=== PATIENT | male | born 1955 | race Caucasian/White ===

== ENCOUNTER → 2019-06-14 10:34 | Outpatient (CLI) | payer OTHER, SELFPAY ==
--- NOTE | ~2019-06-14 | XR_ITS ---
EXAMINATION: XR shoulder RT min 2V DATE: 06/14/2019 11:06 INDICATION: Right shoulder injury with palpable pop and subsequent anterior right shoulder pain and l imited range of motion TECHNIQUE: AP internally and externally rotated, AP oblique externally rotated and axillary views of the right shoulder were obtained. COMPARISON: None FINDINGS: Normal alignment. No fracture.Mild glenohumeral osteoarthritis with mild posterior predominant nonun iform joint space narrowing and small marginal osteophytes along the inferior humeral head. Mild acro mioclavicular osteoarthritis. Small subacromial spur. Right lung volume appears small but clear with no focal airspace opacities, pleural effusion or pneumothorax. IMPRESSION: Mild degenerative changes at the right shoulder. No acute osseous abnormality. Reviewed, dictated and finalized at location A.
== END ==
PROVIDERS: PCP Family Medicine; Visit Provider Family Medicine
DX: S49.91XA Unspecified injury of right shoulder and upper arm, initial encounter (principal)
CPT/HCPCS: 73030

== ENCOUNTER 2019-08-07 08:14 | Outpatient (CLI) | payer OTHER, SELFPAY ==
--- NOTE | ~2019-08-07 | MR_ITS ---
EXAMINATION: MR shoulder RT wo con DATE: 08/07/2019 09:10 INDICATION: Anterior superior right shoulder pain. TECHNIQUE: Magnetic resonance imaging (MRI) of the right shoulder was performed without intravenous c ontrast. Sequences included axial PD-weighted FS FSE, coronal oblique PD-weighted FS FSE and T2-weigh oziel FS FSE, and sagittal oblique T2-weighted FS FSE and T1-weighted FSE. COMPARISON: Right shoulder radiographs 06/14/2019 FINDINGS: Coracoacromial arch: The acromion undersurface is flat in morphology (type I). Subacromial spurring is noted. There is sev ere acromioclavicular joint osteoarthritis including inferiorly directed osteophytes. There is mild s ubacromial/subdeltoid bursitis. Rotator cuff: There is severe supraspinatus and infraspinatus tendinopathy. There is an articular sided partial-thi ckness tear of supraspinatus and infraspinatus tendons measuring 2.8 cm anterior to posterior by 3.9 cm proximal to distal by 30% tendon thickness. Teres minor tendon is normal. There is mild subscapula ris tendinopathy. There is no asymmetric fatty atrophy of the rotator cuff muscle bellies. Biceps tendon and glenoid labrum: Biceps tendon is in bicipital groove. There is mild intra-articular biceps tendinopathy. There is a t ear of superior and posterior labrum from 7:00 to 12:00 (SLAP tear) with 5 mm paralabral cyst at 8:00 . Fluid: There is a small glenohumeral joint effusion. Bones/cartilage: There is cartilage surface irregularity of glenoid and humeral head. Osteophytes are noted. IMPRESSION: 1. Severe rotator cuff tendinopathy with articular-sided partial-thickness tear involving supraspinat us and infraspinatus tendons. 2. Mild glenohumeral joint chondrosis. SLAP tear. 3. Small glenohumeral joint effusion. 4. Severe acromioclavicular joint osteoarthritis. 5. Mild subacromial/subdeltoid bursitis. Reviewed, dictated and finalized at location E. IMPRESSION: 1. Severe rotator cuff tendinopathy with articular-sided partial-thickness tear involving supraspinatus and infraspinatus tendons. 2. Mild glenohumeral joint chondrosis. SLAP tear. 3. Small glenohumeral joint effusion. 4. Severe acromioclavicular joint osteoarthritis. 5. Mild subacromial/subdeltoid bursitis.
== END 2019-08-07 08:15 | disposition home or self-care (01) ==
LOC: ANHIMG 08:24
PROVIDERS: PCP Family Medicine; Visit Provider Family Medicine
DX: S46.011A Strain of muscle(s) and tendon(s) of the rotator cuff of right shoulder, initial encounter (principal); S43.431A Superior glenoid labrum lesion of right shoulder, initial encounter; M25.411 Effusion, right shoulder; M19.011 Primary osteoarthritis, right shoulder; M75.51 Bursitis of right shoulder
CPT/HCPCS: 73221

== ENCOUNTER → 2019-11-29 08:15 | Outpatient (REF) | payer BC, SELFPAY | LOC: ANHLAB 08:15 | PROVIDERS: PCP Family Medicine; Visit Provider Nurse Practitioner | DX: C44.311 Basal cell carcinoma of skin of nose (principal) | CPT/HCPCS: 88305 ==

== ENCOUNTER → 2020-01-23 06:57 | Outpatient (REF) | payer BC, SELFPAY | LOC: ANHLAB 06:57 | PROVIDERS: PCP Family Medicine; Visit Provider Nurse Practitioner | DX: C44.311 Basal cell carcinoma of skin of nose (principal) | CPT/HCPCS: 88305; 88331 ==

== ENCOUNTER 2020-02-10 01:23 | Outpatient (CLI) | payer BC, SELFPAY ==
[2020-02-10 21:24] LABS: SARS-CoV-2 RNA PCR Negative
== END 2020-02-10 01:24 | disposition home or self-care (01) ==
LOC: ANHCOVIDDT 01:23
PROVIDERS: PCP Family Medicine; Visit Provider Internal Medicine Critical Care Medicine
DX: Z20.828 Contact with and (suspected) exposure to other viral communicable diseases (principal)
CPT/HCPCS: 87635; C9803; U0003

== ENCOUNTER 2020-02-13 07:43 | Outpatient (CLI) | payer BC, SELFPAY ==
--- NOTE | 2020-03-19 11:36 | WPDSLEEPSTUD ---
Sleep Study Date of Study: 02/13/20 Ordering Provider: Chad Soler DO Interpreting Physician: Adele Lee MD Sleep Study Type: Polysomnogram Height: 1.83 m Weight: 101.151 kg Body Mass Index: 30.2 Neck Circumference: 44.45 cm [place]: 9 Reason for Sleep Study history of obstructive sleep apnea; re-evaluation prior home sleep study on October 01, 2017 for loud snoring; mild obstructive sleep apnea with mild desaturation and snoring, AHI 8.7, lowest desaturaiton 87% Sleep History Craig Kenney is a 64 year old man who was referred by Dr Soler for loud snoring , 5 and a that others complain about it. He rarely awakens at night with heartburn, belching or coughing. He does not awaken from sleep feeling short of breath. He rarely has trouble sleep with a cold. He is gasp for breath at night and is not told by others that he has breathing problems while sleeping. He occasionally sweats excessively at night and occasionally notices his heart pounding or beating irregularly at night. He rarely falls asleep during the day, rarely involuntarily. He occasionally falls asleep while driving. He does not fall asleep while exerting physical effort. He does not have loss of muscle tone was strong emotion. He does not have daytime difficulties due to excessive sleepiness. He does not feel paralyzed on waking or falling asleep. He does not have vivid dreamlike scenes upon awakening or falling asleep. He is not afraid to go to sleep. He denies nightmares. He rarely remembers his dreams. He occasionally has racing thoughts he does not feel sad or depressed. Occasionally has feelings of anxiety. he rarely has muscular tension. He occasionally notices parts of his body jerking. He does not kick at night. He rarely has crawling and aching feelings in his legs at night. he rarely has leg pain at night. He does not have morning jaw pain. He frequently grinds his teeth during sleep. He occasionally has bothered by pain during the day. He rarely is awakened by pain at night. He occasionally wakes up feeling stiff in the morning. He rarely wakes up with sore or achy muscles. He occasionally wakes up with pain in the neck and spine. He has headaches. Normal bedtime is 9:00 p.m. falling asleep quickly waking twice at night for 10-20 minutes. While awake he goes to the bathroom. He wakes the morning at 5:00 a.m.. Weekend schedule is similar, going ot bed at 9:00 p.m. waking at 6:00 a.m. He does not usually take a nap. Short naps are not refreshing. He feels better inthe morning compared ot other times of fay. Habits: never smoked tobacco. Caffeine 2-3 glasses per day. Alcohol 4 beers per month. No recreational drugs. [facility] Past Medical History Medical History (Updated 03/19/20 @ 19:28 by Adele Lee MD) Essential (primary) hypertension Gout, unspecified Hypothyroidism Mixed hyperlipidemia MAYKEL (obstructive sleep apnea) (~2018) Family History Family History Father Family history of lung cancer Social History Social History Smoking status: Never smoker Alcohol intake: never Additional living arrangements comments: - [place] Additional occupation/education comments: [employer] ([employer]) Gender identity (if verbalized by the patient): Male Medications Home Medications Medication Instructions Recorded Confirmed Type levothyroxine 50 mcg tablet 50 mcg PO DAILY #90 tablet 07/03/19 02/24/20 Rx allopurinol 300 mg tablet 300 mg PO DAILY #90 tablet 10/04/19 02/24/20 Rx rosuvastatin 20 mg tablet See Rx Instructions .ROUTE 01/02/20 02/24/20 Rx .COMPLEX #90 tablet amoxicillin 875 mg-potassium 1 tablet PO BID #20 tablet 02/22/20 02/24/20 Rx clavulanate 125 mg tablet Sleep Procedure This test was performed using the [employer] multiple channel system including EOG, EEG, submental EMG, EKG,
[2020-03-19 17:18] VITALS: BMI 30.2
== END 2020-02-13 07:44 | disposition home or self-care (01) ==
LOC: ANHCSM 07:43
PROVIDERS: PCP Family Medicine; Visit Provider Internal Medicine Cardiovascular Disease
DX: G47.33 Obstructive sleep apnea (adult) (pediatric) (principal)
CPT/HCPCS: 95810

== ENCOUNTER → 2020-07-10 00:26 | Outpatient (CLI) | payer BC, SELFPAY ==
[2020-07-10 20:47] LABS: SARS-CoV-2 RNA PCR Negative
== END ==
PROVIDERS: PCP Family Medicine; Visit Provider Internal Medicine Gastroenterology
DX: Z01.812 Encounter for preprocedural laboratory examination (principal); Z20.822 Contact with and (suspected) exposure to COVID-19
CPT/HCPCS: C9803; U0003; U0005

== ENCOUNTER 2020-07-13 01:32 | Day surgery (SDC) | payer BC, SELFPAY ==
[2020-07-02 14:30] VITALS: BMI 31.4
[2020-07-13 08:12] VITALS: BP 142/96; PULSE 76; RESP 20; TEMP 36; O2SAT 99
[2020-07-13] MEDS: LACTATED RINGERS 1,000 ML 150 ML IV CONT (08:17)
--- NOTE | 2020-07-13 09:01 | PM.HPGS ---
History of Present Illness History of Present Illness Consent: Risks, benefits, and alternatives have been discussed and questions answered. Patient agrees to proceed with procedure. Chief complaint: hx of colon polyps, neoplasm screening Narrative: Craig Kenney is a 64 year old male referred for colon cancer screening. He has a history of having had polyps in past Review of Systems Review of Systems: All systems reviewed & are unremarkable except as noted in HPI and below PMFSH Past Medical History Medical History Essential (primary) hypertension Gout, unspecified Hypothyroidism Mixed hyperlipidemia MAYKEL (obstructive sleep apnea) (~2018) Screen for colon cancer Family History Family History Father Family history of lung cancer Social History Social History Smoking status: Never smoker Alcohol intake: never Substance use: never Substance use type: does not use Living arrangements: with family Additional living arrangements comments: - [place] Additional occupation/education comments: [employer] ([employer]) Gender identity (if verbalized by the patient): Male Spiritual care concerns: No Meds Home Medications and Allergies Home Medications Medication Instructions Recorded Confirmed Type sildenafil 100 mg tablet 100 mg PO DAILY PRN #20 tablet 06/08/20 07/13/20 Rx allopurinol 300 mg tablet 300 mg PO DAILY #90 tablet 07/02/20 07/13/20 Rx levothyroxine 50 mcg tablet 50 mcg PO DAILY #90 tablet 07/02/20 07/13/20 Rx rosuvastatin 20 mg PO DAILY 07/13/20 07/13/20 History Allergies Allergy/AdvReac Type Severity Reaction Status Date / Time No Known Allergies Allergy Verified 07/13/20 08:11 Vital Signs Vital Signs - 24 hr 07/13/20 08:12 Temperature 36.0 C L Pulse Rate 76 Respiratory Rate 20 Blood Pressure 142/96 H Pulse Oximetry 99 Exam Resp: Auscultation: clear to auscultation bilaterally Cardio: Rate: regular rate Rhythm: regular rhythm GI: GI Palp: Yes Soft to palpation and No Tenderness to palpation present (GI) Assessment and Plan Assessment and plan (1) Screen for colon cancer: Code(s): Z12.11 - Encounter for screening for malignant neoplasm of colon Status: Acute Assessment and Plan: Colonoscopy with possible biopsy or polypectomy or cautery or injection of substances.
[2020-07-13 09:29] VITALS: BP 106/67; PULSE 69; RESP 15; O2SAT 95
[2020-07-13 09:39] VITALS: BP 117/77; PULSE 72; RESP 19; O2SAT 95
[2020-07-13 09:49] VITALS: BP 115/83; PULSE 70; RESP 19; O2SAT 98
== END 2020-07-13 10:00 | disposition home or self-care (01) ==
PROVIDERS: PCP Family Medicine; Visit Provider Internal Medicine Gastroenterology
PROC: 0DJD8ZZ Inspection of Lower Intestinal Tract, Via Natural or Artificial Opening Endoscopic (ICD-10-PCS; CPT 45378; principal; 2020-07-13 09:30)
DX: Z12.11 Encounter for screening for malignant neoplasm of colon (principal); Z86.010 Personal history of colon polyps; K57.30 Diverticulosis of large intestine without perforation or abscess without bleeding; I10 Essential (primary) hypertension; G47.33 Obstructive sleep apnea (adult) (pediatric); E78.2 Mixed hyperlipidemia; E03.9 Hypothyroidism, unspecified
CPT/HCPCS: 45378; J2704; J7120

== ENCOUNTER → 2020-11-29 14:40 | Outpatient (CLI) | payer BC, SELFPAY ==
--- NOTE | ~2020-11-29 | XR_ITS ---
XR hip BI 2V w AP pelvis DATE: 11/29/2020 15:24 INDICATION: Hip pain TECHNIQUE: AP pelvis. AP and lateral views of each hip. COMPARISON: None FINDINGS: The pubic symphysis and sacroiliac joints are intact. No pelvic fracture or bone destruction is detected. No fracture or dislocation, avascular necrosis or bone destruction of either hip is detected. Hip beata nt spaces are symmetric and well preserved. IMPRESSION: No significant abnormality of the hips Reviewed, dictated and finalized at location A.
--- NOTE | ~2020-11-29 | XR_ITS ---
XR lumbar spine 6V w bending DATE: 11/29/2020 15:24 INDICATION: Hip pain TECHNIQUE: AP, lateral, bilateral oblique and coned lateral lumbosacral views. Flexion and extension lateral views. COMPARISON: None FINDINGS: There is prominent degenerative spurring of the lower thoracic spine. There is moderate degenerative disc disease and anterior spurring at L1-2. There is moderately severe degenerative disease and spurring at L2-3 with associated minimal retrolis thesis. There is moderate degenerative disease at L3-4. There is minimal spurring at L4-5. There is severe degenerative disc disease at L5-S1. No spondylolysis or spondylolisthesis. There is no instability on flexion or extension. The sacroiliac joints are intact. IMPRESSION: Multilevel degenerative disc disease, most pronounced at L2-3 and L5-S1 Reviewed, dictated and finalized at location A. IMPRESSION: Multilevel degenerative disc disease, most pronounced at L2-3 and L 5-S1
== END ==
PROVIDERS: PCP Family Medicine; Visit Provider Family Medicine
DX: M25.559 Pain in unspecified hip (principal); M51.36 Other intervertebral disc degeneration, lumbar region
CPT/HCPCS: 72114; 73521

== ENCOUNTER → 2021-06-04 08:18 | Outpatient (REF) | payer OTHER, SELFPAY | LOC: ANHLAB 08:18 | PROVIDERS: PCP Family Medicine; Visit Provider Nurse Practitioner | DX: C44.91 Basal cell carcinoma of skin, unspecified (principal) | CPT/HCPCS: 88305 ==

== ENCOUNTER → 2021-07-15 08:47 | Outpatient (REF) | payer OTHER, SELFPAY | LOC: ANHLAB 08:47 | PROVIDERS: PCP Family Medicine; Visit Provider Nurse Practitioner | DX: C44.519 Basal cell carcinoma of skin of other part of trunk (principal) | CPT/HCPCS: 88305; 88331 ==

== ENCOUNTER 2022-10-23 08:00 | Outpatient (NON) | payer MEDICARE, SELFPAY | END 2022-10-23 08:01 | disposition home or self-care (01) | PROVIDERS: PCP Family Medicine; Visit Provider Nurse Practitioner | DX: D22.5 Melanocytic nevi of trunk (principal) | CPT/HCPCS: 88305; 88342 ==

== ENCOUNTER 2023-03-02 07:00 | Outpatient (NON) | payer MEDICARE, SELFPAY | END 2023-03-02 07:01 | disposition home or self-care (01) | LOC: ANHLAB 03-04 11:31 | PROVIDERS: PCP Family Medicine; Visit Provider Nurse Practitioner | DX: L82.1 Other seborrheic keratosis (principal) | CPT/HCPCS: 88305 ==

== ENCOUNTER 2024-03-30 09:40 | Outpatient (CLI) | payer MEDICARE, SELFPAY ==
--- NOTE | 2024-03-30 09:56 | ECHO_ITS ---
Patient Info Name: Craig Kenney Age: 68 years : 1955 Gender: Male Ht: 72 in Wt: 235 lbs BSA: 2.36 m2 HR: 69 bpm BP: 170 / 114 mmHg Heart Rhythm: Sinus Rhythm Technical Quality: Good Exam Date: 03/30/2024 10:00 AM Exam Location: Echo Lab Patient Status: Outpatient Admit Date: 03/30/2024 Staff Ordering Physician: Aruna Scott Professor Of Economics: Staci Osborne RDCS Attending Provider: Aruna Scott Referring Physician: Tyler MACHADO; Exam Type: CA echo doppler color flow Study Info Indications R06.02 - Shortness of breath Complete two-dimensional, color flow and Doppler transthoracic echocardiogram is performed. Summary 1. Complete two-dimensional, color flow and Doppler transthoracic echocardiogram is performed. 2. Left ventricular chamber dimension is normal. 3. Left ventricular systolic function is normal, estimated at 60-65%. 4. There is mild concentric increased left ventricular wall thickness. 5. The left ventricular diastolic function is abnormal. 6. E/e' 11 is mildly elevated. 7. Left atrial chamber dimension is mildly enlarged. 8. There is trace aortic valve regurgitation. 9. There is trace mitral valve regurgitation. 10. There is trace tricuspid valve regurgitation. 11. No pulmonary hypertension, estimated pulmonary arterial systolic pressure is 27 mmHg. 12. There is trace pulmonic regurgitation. Left Ventricle E/e' 11 is mildly elevated. Left ventricular chamber dimension is normal. Left ventricular systolic function is normal, estimated at 60-65%. There is mild concentric increased left ventricular wall thickness. The left ventricular diastolic function is abnormal. Right Ventricle Right ventricular systolic function is normal and with normal TAPSE 2.0 cm. Right ventricular chamber dimension is normal. Left Atria Left atrial chamber dimension is mildly enlarged. Right Atria Right atrial chamber dimension is normal. Aortic Valve The aortic valve is trileaflet. There is no aortic valve stenosis. There is trace aortic valve regurgitation. Pulmonic Valve There is trace pulmonic regurgitation. Mitral Valve There is no mitral valve stenosis. There is trace mitral valve regurgitation. Tricuspid Valve There is trace tricuspid valve regurgitation. No pulmonary hypertension, estimated pulmonary arterial systolic pressure is 27 mmHg. Pericardium/Pleural There is no pericardial effusion. Inferior Vena Cava Normal inferior vena cava with >50% collapse upon inspiration consistent with normal right atrial pressure, 5 mmHg. Aorta The aortic root size at the sinus of Valsalva is normal. Left Ventricular Outflow Tract Name Value Normal LVOT 2D LVOT Diameter 2.0 cm LVOT Doppler LVOT Peak Gradient 4 mmHg LVOT Mean Gradient 2 mmHg LVOT VTI 20 cm LVOT VTI/AV VTI Ratio 0.7 LVOT Stroke Volume 64 ml LVOT CO 3.9 l/min LVOT CI 1.6 l/min/m2 Pulmonic Valve Name Value Normal RVOT Doppler RVOT Peak Gradient 3 mmHg PV Doppler PV Peak Gradient 5 mmHg Mitral Valve Name Value Normal MV Doppler MV Decel Nobles 470 cm/s2 MV PHT 51 ms MV Area (PHT) 4.3 cm2 4.0-5.0 MV Diastolic Function MV E Peak Velocity 83 cm/s MV A Peak Velocity 74 cm/s MV E/A 1.1 MV Decel Time 177 ms MV Annular TDI MV E/e' (Septal) 12.6 <=8.0 MV E/e' (Lateral) 10.0 <=8.0 MV E/e' (Average) 11.3 Tricuspid Valve Name Value Normal TV Regurgitation Doppler TR Peak Velocity 236 cm/s TR Peak Gradient 22 mmHg Estimated PAP/RSVP RA Pressure 5 mmHg <=5 PA Systolic Pressure 27 mmHg <36 RV Systolic Pressure 27 mmHg <36 Aorta Name Value Normal Ascending Aorta Ao Root Diameter (MM) 3.3 cm Ao Root Diam Index (MM) 1.4 cm/m2 Aortic Valve Name Value Normal AV Doppler AV Peak Velocity 140 cm/s AV Peak Gradient 8 mmHg AV Mean Gradient 4 mmHg AV VTI 28 cm AV Area (Cont Eq VTI) 2.3 cm2 >=3.0 AV Area (Cont Eq Jeremy) 2.4 cm2 AV Regurgitation 2D LVOT Area 3.2 cm2 Ventricles Name Value Normal LV Dimensions 2D/MM IVS Diastolic Thickness (2D) 1.2 cm 0.6-1.0 LVID Diastole (2D) 5.1 cm 4.2-5.8 LVIW Diastolic Thickness (2D) 1.2 cm 0.6-1.0 LVID Systole (2D) 3.4 cm 2.5-4.0 LVOT Diameter 2.0 cm LV Mass (2D Cubed) 238.68 g 88.00-224.00 LV Mass Index (2D Cubed) 101 g/m2 49-115 Relative Wall Thickness (2D) 0.46 LV Fractional Shortening/Ejection Fraction 2D/MM LV Fractional Shortening (2D) 33 % 25-43 LV EF (2D Teicholz) 61 % 52-72 LV Diastolic Volume (4C MOD) 111 ml LV EF (4C MOD) 61 % LV Diastolic Volume (2C MOD) 89 ml LV EF (2C MOD) 58 % LV Diastolic Volume (BP MOD) 102 ml 62-150 LV Diastolic Volume Index (BP MOD) 43 ml/m2 34-74 LV Systolic Volume (BP MOD) 42 ml 21-61 LV Systolic Volume Index (BP MOD) 18 ml/m2 11-31 LV EF (BP MOD) 59 % 52-72 LV Diastolic Length (4C) 8.3 cm LV Systolic Length (4C) 6.6 cm LV Stroke Volume (4C MOD) 67 ml Atria Name Value Normal LA Dimensions LA Dimension (MM) 4.5 cm 3.0-4.1 LA Volume (4C A-L) 51 ml LA Volume (BP A-L) 58 ml RA Dimensions RA Area (4C) 19.4 cm2 <=18.0 Report Signatures
== END 2024-03-30 09:41 | disposition home or self-care (01) ==
LOC: ANHCARD 09:40
PROVIDERS: PCP Family Medicine; Visit Provider Nurse Practitioner Family
DX: R06.02 Shortness of breath (principal)
CPT/HCPCS: 93306

== ENCOUNTER 2025-01-03 03:43 | Emergency (ER) | payer MEDICARE, SELFPAY ==
--- NOTE | ~2025-01-03 | XR_ITS ---
Examination: XR chest 2V Clinical History: chest pain middle of chest Comparison: 07/16/2016 Technique: PA and Lateral Findings: Cardiomediastinal silhouette normal size and configuration. Lungs clear. No acute bony abnormality. IMPRESSION: 1. No acute cardiopulmonary findings. Reviewed, dictated and finalized at location R.
--- NOTE | 2025-01-03 03:45 | ECG_ITS ---
Test Date: 2025-01-03 03:49:46 Measurements Intervals [place] Rate: 71 P: 89 [place]: 159 QRS: -12 QRSD: 138 T: 30 QT: 422 QTc: 459 Interpretive Statements SINUS RHYTHM RIGHT BUNDLE BRANCH BLOCK BASELINE ARTIFACT- AVF, V3-V5 ABNORMAL ECG No previous ECG available for comparison Electronically Signed On 01-03-2025 06:22:45 CDT by Chad Soler D.O.
[2025-01-03 03:55] VITALS: BP 142/105; PULSE 68; RESP 17; TEMP 36.7; O2SAT 100
--- NOTE | 2025-01-03 04:01 | ED_ITS ---
HPI - Chest Pain General Chief Complaint: Chest Pain Stated Complaint: chest pain Time Seen by Provider: 01/03/25 03:47 History of Present Illness HPI narrative: 69-year-old male with a history of obstructive sleep apnea presenting to the emergency department with chest discomfort and shortness of breath. He states he was getting up to go the bathroom today and then had some chest pressure sensations that lasted about 15-20 minutes and then subsided. Was associated with pain when he moves in certain directions as well as some exertional dyspnea. Symptoms subsided upon arrival to the emergency department. Has a field specialist that sees him yearly with no recent health concerns. Had an echocardiogram at the beginning of this year that was largely unremarkable aside from some mild diastolic abnormality. No systolic concerns. Patient does not take any blood pressure medications. Was otherwise in his normal state of health. No history of cardiac disease or cardiac anomalies to his knowledge. No recent changes to his health. Related Data Allergies Allergy/AdvReac Type Severity Reaction Status Date / Time No Known Allergies Allergy Verified 01/03/25 04:28 Review of Systems 2 Review of Systems: As reviewed above in HPI [facility] Past Medical History Medical History Screening PSA (prostate specific antigen) Testosterone deficiency in male Leg edema Bilateral groin pain Lumbosacral radiculopathy due to degenerative joint disease of spine Hip pain Screen for colon cancer Otitis externa Otitis media Eustachian tube dysfunction Basal cell carcinoma (BCC) of left nasal sidewall Subacromial impingement of right shoulder History of actinic keratosis Family history of actinic keratosis Essential (primary) hypertension Gout, unspecified Hypothyroidism Mixed hyperlipidemia MAYKEL (obstructive sleep apnea) (~2018) Family History Family History Father Family history of lung cancer Mother Hypotension Brain aneurysm Sibling Lung cancer Social History Social History Smoking status: Never smoker Second hand tobacco smoke exposure: Yes Alcohol intake: current Drinks per week: 3 Substance use: never Substance use type: does not use Do You Feel Safe in your Home?: Yes Lack of Transportation: No Lack of Food: Never True Current Housing: I Have Housing Concerned About Future Housing: No Difficulty Paying Gas/Electric Bills: No Difficulty Paying for Meds: No Currently Unemployed: No Education: High School Diploma/GED Difficulty w/ Childcare or Family Care: No Living arrangements: with family Additional living arrangements comments: - [place] Occupation/Education: retired 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 Gender identity (if verbalized by the patient): Male Sexual Orientation (if Verbalized by the Patient): Straight or Heterosexual Spiritual care concerns: No Exam 2 Narrative: GENERAL: [Well-appearing, well-nourished, and in no acute distress.] HEAD: [Normocephalic, atraumatic.] EYES: [PERRLA and EOMI.] ENT: Nares clear, no rhinorrhea or epistaxis. Mucous membranes moist. NECK: Supple. CHEST: [Clear to auscultation. No respiratory distress.] HEART: [Regular rate and rhythm]. No murmur heard. [Normal peripheral pulses.] ABDOMEN: [Soft, nondistended], [nontender], [No rigidity or guarding] EXTREMITIES: Normal range of motion. [No edema.] SKIN: Warm, dry, no rash. NEURO: [No focal deficits]. Alert and oriented [x3.] PSYCH: [Normal mood and affect.] Course Vital Signs Vital signs: Vital Signs Temperature 36.7 C 01/03/25 03:55 Pulse Rate 68 01/03/25 03:55 Respiratory Rate 17 01/03/25 03:55 Blood Pressure 142/105 H 01/03/25 03:55 Pulse Oximetry 100 01/03/25 03:55 Oxygen Delivery Room Air 01/03/25 03:55 Temperature 36.7 C 01/03/25 03:55 Pulse Rate 65 01/03/25 07:11 Respiratory Rate 18 01/03/25 07:11 Blood Pressure 151/87 H 01/03/25 07:11 Pulse Oximetry 99 01/03/25 07:11 Oxygen Delivery Room Air 01/03/25 04:04 MDM - Chest Pain MDM Narrative Medical decision making narrative: 69-year-old male with a history of obstructive sleep apnea presenting to the emergency department with chest discomfort and shortness of breath. He states he was getting up to go the bathroom today and then had some chest pressure sensations that lasted about 15-20 minutes and then subsided. Was associated with pain when he moves in certain directions as well as some exertional dyspnea. Symptoms subsided upon arrival to the emergency department. Has a field specialist that sees him yearly with no recent health concerns. Had an echocardiogram at the beginning of this year that was largely unremarkable aside from some mild diastolic abnormality. No systolic concerns. Patient does not take any blood pressure medications. Was otherwise in his normal state of health. No history of cardiac disease or cardiac anomalies to his knowledge. No recent changes to his health. Patient has a benign physical examination with no signs of pitting edema, strong symmetric pulses are noted throughout, clear breath sounds noted throughout. No murmur. No significant hypertension. No tachycardia, fever, hypoxemia. Symptoms could be a combination of things like musculoskeletal chest pain, MAYKEL, GERD, angina, ACS. Low suspicion thromboembolic event as he is not tachycardic, hypoxic or any signs of DVT or recent risk factors. Low Wells criteria. Troponins ordered at this time as well as EKG, chest x-ray, basic metabolic and CBC panel. Patient placed on pulse oximetry and potline monitor. EKG obtained shows no ST segment derangements at this time. Patient is asymptomatic at this time. Patient did have a recurrence of some mild chest pressure while here in the emergency department and in re-evaluated in the moment no change in clinical status. Remains hemodynamically stable. Clear breath sounds. Symmetric pulses. Trial of nitroglycerin and aspirin was provided to him any had no relief afterwards which also possibly points away from cardiac etiology without any sublingual nitroglycerin relief as his initial troponin is negative. Will trial Pepcid and Toradol and await delta troponin and dealt EKG with remaining workup underway. Patient's initial cardiac workup is unremarkable. Chest x-ray unrevealing. EKG without ischemic changes. Delta EKG without any obvious ischemic changes. Delta troponin negative. Patient re-evaluated had improvement. Safe for discharge home at this time and given strict return precautions and has already a field specialist he can follow up with outpatient. Medical Records Data Attestation: I reviewed the patient's medical records. Lab Data Attestation: I reviewed the patient's lab results. 01/03/25 04:01 01/03/25 04:01 Labs: Lab Results 01/03/25 01/03/25 01/03/25 Range/Units 04:01 04:01 06:21 WBC 8.8 (4.5-10.0) K/mm3 RBC 4.96 (4.6-6.20) M/mm3 Hgb 15.1 (14.0-18.0) g/dL Hct 45.0 (42.0-52.0) % MCV 90.7 (80-100) fl MCH 30.4 (26-34) pg MCHC 33.6 (32-36) g/dl RDW 13.8 (11.5-14.5) % Plt Count 169 (150-375) k/mm3 MPV 8.9 (7.4-10.4) fl Immature Gran % (Auto) 1.1 H (0-0.5) % Neut % (Auto) 56.4 (45.5-73.1) % Lymph % (Auto) 31.4 (18.3-44.2) % [place] % (Auto) 7.5 (2.6-8.5) % Eos % (Auto) 2.3 (0-4.4) % Baso % (Auto) 1.3 H (0.2-1.2) % Lymph # (Auto) 2.76 (0.9-3.2) K/mm3 [place] # (Auto) 0.7 H (0.1-0.6) K/mm3 Eos # (Auto) 0.2 (0-0.3) K/mm3 Baso # (Auto) 0.1 (0.0-0.1) K/mm3 Abs Immat Gran (auto) 0.10 H (0.00-0.031) K/mm3 Absolute Neuts (auto) 5.0 (1.3-6.7) K/mm3 Absolute Nucleated RBC 0.000 (0.0-0.012) K/mm3 Nucleated RBC % 0.0 (0.0-0.2) % PT 13.6 (11.1-14.7) Seconds INR 1.0 APTT 28.4 (22.3-36.8) Seconds Sodium 137 (137-145) mmol/L Potassium 4.0 (3.4-5.0) mmol/L Chloride 103 (98-107) mmol/L Carbon Dioxide 30 (22-30) mmol/L Anion Gap 4 (4-12) mmol/L BUN 16 (9-20) mg/dL Creatinine 1.10 (0.7-1.3) mg/dL Estim Creat Clear Calc 71 ml/min Estimated GFR > 60 (59 - ) Glucose 117 H (65-110) mg/dL Calcium 8.5 (8.4-10.2) mg/dL Total Bilirubin 0.8 (0.2-1.3) mg/dL AST 35 (17-59) U/L ALT 26 (6-50) U/L Alkaline Phosphatase 48 (38-126) U/L Troponin I < 0.012 < 0.012 (0.000-0.034) ng/mL NT-Pro-B Natriuret Pep 181 H Cancelled (19.9-100) pg/mL Total Protein 6.9 (6.3-8.2) g/dL Albumin 4.1 (3.5-5.1) g/dL Lipase 117 (23-300) U/L Imaging Data Attestation: I personally reviewed and interpreted this imaging study as follows: My impression: Impressions Chest X-Ray 01/03/25 06:31 IMPRESSION: 1. No acute cardiopulmonary findings. Discharge Plan Discharge Clinical Impression: Chest pain Patient Disposition: Still a Patient Condition: Stable Additional Instructions: Follow-up with your field specialist on outpatient basis. Take some anti- inflammatories (Tylenol/ibuprofen) every 4-6 hours for pain control. Return with any recurrent chest pain, crushing chest discomfort, new symptoms such as difficulty breathing, losing consciousness, worsening symptoms or any other emergencies. Call your field specialist for follow-up visit. Patient Language: Portuguese Prescriptions: No Action allopurinol 300 mg tablet 300 mg PO DAILY Qty: 90 1RF rosuvastatin 20 mg tablet 20 mg PO DAILY Qty: 90 1RF Rx Instructions: TAKE 1 TABLET BY MOUTH DAILY levothyroxine 50 mcg tablet 50 mcg PO DAILY Qty: 90 1RF Follow-up/Referrals: Chad Soler DO [Physician, Cardiology] - 3 Days Referral Note: CP UNKNOWN,DOCTOR [Primary Care Provider] Time of Disposition: 07:14
[2025-01-03 04:04] VITALS: O2SAT 100
[2025-01-03 04:05] VITALS: PULSE 68
[2025-01-03 04:11] LABS: Hematocrit 45.0 % (42.0-52.0); Hemoglobin 15.1 g/dL (14.0-18.0); Immature Granulocyte Percent A 1.1 % (0-0.5); Lymphocytes Absolute Auto 2.76 K/mm3 (0.9-3.2); Mean Corpuscular HGB Conc 33.6 g/dl (32-36); Mean Corpuscular Hemoglobin 30.4 pg (26-34); Mean Corpuscular Volume 90.7 fl (80-100); Nucleated Red Blood Cells Absolute Auto 0.000 K/mm3 (0.0-0.012); Nucleated Red Blood Cells Perc 0.0 % (0.0-0.2); Platelet Count Result 169 k/mm3 (150-375); Red Blood Count 4.96 M/mm3 (4.6-6.20); White Blood Count 8.8 K/mm3 (4.5-10.0)
[2025-01-03 04:20] LABS: Alanine Aminotransferase 26 U/L (6-50); Albumin Level 4.1 g/dL (3.5-5.1); Alkaline Phosphatase 48 U/L (38-126); Anion Gap 4 mmol/L (4-12); Aspartate Amino Transferase 35 U/L (17-59); Bilirubin,Total 0.8 mg/dL (0.2-1.3); Blood Urea Nitrogen 16 mg/dL (9-20); Calcium 8.5 mg/dL (8.4-10.2); Carbon Dioxide 30 mmol/L (22-30); Chloride 103 mmol/L (98-107); Estimated CRCL calculation 71 ml/min; Estimated Glomerular Filt Rate > 60; Glucose 117 mg/dL (65-110); Lipase 117 U/L (23-300); Potassium 4.0 mmol/L (3.4-5.0); Sodium 137 mmol/L (137-145); Total Protein 6.9 g/dL (6.3-8.2)
[2025-01-03 04:23] LABS: INR 1.0; Partial Thromboplastin Time 28.4 Seconds (22.3-36.8); Prothrombin Time 13.6 Seconds (11.1-14.7)
[2025-01-03 04:31] LABS: NT Pro B Type Natriuretic Pept 181 pg/mL (19.9-100); Troponin I < 0.012 ng/mL (0.000-0.034)
[2025-01-03] MEDS: NITROGLYCERIN SL 0.4 MG TABLET SUBLINGUAL (04:37)
[2025-01-03] MEDS: KETOROLAC 15 MG/ML VIAL (*BKC) IV PUSH (04:47)
[2025-01-03] MEDS: FAMOTIDINE 20 MG/2 ML VIAL IV PUSH (04:48)
--- NOTE | 2025-01-03 06:16 | ECG_ITS ---
Test Date: 2025-01-03 06:21:56 Measurements Intervals [place] Rate: 64 P: 54 OR: 166 QRS: -14 QRSD: 129 T: 29 QT: 423 QTc: 437 Interpretive Statements SINUS RHYTHM RIGHT BUNDLE BRANCH BLOCK BASELINE WANDER- V1 ABNORMAL ECG Compared to ECG 01/03/2025 03:49:46 NO SIGNIFICANT CHANGE Electronically Signed On 01-03-2025 06:25:23 CDT by Chad Soler D.O.
[2025-01-03 06:56] LABS: Troponin I < 0.012 ng/mL (0.000-0.034)
[2025-01-03 07:11] VITALS: BP 151/87; PULSE 65; RESP 18; O2SAT 99
== END 2025-01-03 07:21 | disposition home or self-care (01) ==
PROVIDERS: Emergency Provider Student in an Organized Health Care Education/Training Program
DX: R07.9 Chest pain, unspecified (principal); I10 Essential (primary) hypertension; E03.9 Hypothyroidism, unspecified; E78.2 Mixed hyperlipidemia; M10.9 Gout, unspecified; G47.33 Obstructive sleep apnea (adult) (pediatric); Z85.828 Personal history of other malignant neoplasm of skin; Z77.22 Contact with and (suspected) exposure to environmental tobacco smoke (acute) (chronic); Z79.899 Other long term (current) drug therapy; I45.10 Unspecified right bundle-branch block
CPT/HCPCS: 36415; 71046; 80053; 83690; 83880; 84484; 85025; 85610; 85730; 93005; 96374; 96375; 99284; A9270; J1885

== ENCOUNTER 2025-01-11 10:32 | Outpatient (CLI) | payer MEDICARE, SELFPAY ==
--- NOTE | 2025-01-11 10:56 | EST_ITS ---
Patient Info Name: Craig Kenney Age: 69 years : 1955 Gender: Male Ht: 72 in Wt: 230 lbs BSA: 2.33 m2 HR: 61 bpm BP: 154 / 100 mmHg Exam Date: 01/11/2025 10:56 AM Patient Status: O Admit Date: 01/11/2025 Exam Type: CA stress test treadmill A treadmill exercise stress test was performed. Staff Attending Provider: Chad Soler DO Exercise Technologist: Rosi Kenney Exercise Physician: Chad Soler DO Summary 1. 1. Negative Vern exercise stress test for ischemic ST changes by ECG criteria. 2. 2. Good functional capacity, achieving 7 METs of workload. 3. 3. Baseline hypertension with hypertensive response to exercise. 4. 4. Appropriate HR response to exercise. 5. 5. Appropriate HR recovery at 1 minute post exercise. 6. 6. No imaging with stress testing. 7. 7. Patient informed of the above results. Protocol: Vern Stress ECG Details Stage: REST Duration (min): 1 min : 44 sec Speed (mph): 0.0 Grade (%): 0 HR (bpm): 63 SBP (mmHg): 154 DBP (mmHg): 100 METS: --- Stage: REST Duration (min): 5 min : 12 sec Speed (mph): 0.0 Grade (%): 0 HR (bpm): 72 SBP (mmHg): 154 DBP (mmHg): 100 METS: --- Stage: STAGE 1 Duration (min): 1 min : 0 sec Speed (mph): 1.7 Grade (%): 10 HR (bpm): 100 SBP (mmHg): 154 DBP (mmHg): 100 METS: --- Stage: STAGE 1 Duration (min): 2 min : 0 sec Speed (mph): 1.7 Grade (%): 10 HR (bpm): 109 SBP (mmHg): 154 DBP (mmHg): 100 METS: --- Stage: STAGE 1 Duration (min): 3 min : 0 sec Speed (mph): 1.7 Grade (%): 10 HR (bpm): 119 SBP (mmHg): 201 DBP (mmHg): 79 METS: --- Stage: STAGE 2 Duration (min): 1 min : 0 sec Speed (mph): 2.5 Grade (%): 12 HR (bpm): 127 SBP (mmHg): 201 DBP (mmHg): 79 METS: --- Stage: STAGE 2 Duration (min): 2 min : 0 sec Speed (mph): 2.5 Grade (%): 12 HR (bpm): 134 SBP (mmHg): 190 DBP (mmHg): 90 METS: --- Stage: STAGE 2 Duration (min): 3 min : 0 sec Speed (mph): 2.5 Grade (%): 12 HR (bpm): 138 SBP (mmHg): 190 DBP (mmHg): 90 METS: --- Stage: RECOVERY Duration (min): 0 min : 59 sec Speed (mph): 0.0 Grade (%): 0 HR (bpm): 119 SBP (mmHg): 211 DBP (mmHg): 76 METS: --- Stage: RECOVERY Duration (min): 1 min : 59 sec Speed (mph): 0.0 Grade (%): 0 HR (bpm): 99 SBP (mmHg): 211 DBP (mmHg): 76 METS: --- Stage: RECOVERY Duration (min): 2 min : 59 sec Speed (mph): 0.0 Grade (%): 0 HR (bpm): 89 SBP (mmHg): 183 DBP (mmHg): 80 METS: --- Stage: RECOVERY Duration (min): 3 min : 59 sec Speed (mph): 0.0 Grade (%): 0 HR (bpm): 89 SBP (mmHg): 183 DBP (mmHg): 80 METS: --- Stage: RECOVERY Duration (min): 4 min : 59 sec Speed (mph): 0.0 Grade (%): 0 HR (bpm): 82 SBP (mmHg): 178 DBP (mmHg): 89 METS: --- Stage: RECOVERY Duration (min): 5 min : 59 sec Speed (mph): 0.0 Grade (%): 0 HR (bpm): 81 SBP (mmHg): 178 DBP (mmHg): 89 METS: --- Stage: RECOVERY Duration (min): 6 min : 59 sec Speed (mph): 0.0 Grade (%): 0 HR (bpm): 83 SBP (mmHg): 155 DBP (mmHg): 102 METS: --- Stage: RECOVERY Duration (min): 7 min : 7 sec Speed (mph): 0.0 Grade (%): 0 HR (bpm): 85 SBP (mmHg): 155 DBP (mmHg): 102 METS: --- Rest HR: 72 bpm Peak HR: 139 bpm Rest Sys BP: 154 mmHg Peak Sys BP: 211 mmHg Max Pred HR: 152 bpm % Max Pred HR: 91 % Target HR: 129 bpm Max RPP: 29,329 bpm*mmHg Thornton Score: -7 BP Response: Patient exhibited a hypertensive response with stress Termination Reason: Reached target heart rate or workload Cardiac Symptoms: Shortness of breath Max ST Seg Deviation: 2.50 mm Total Time: 6 min : 0 sec Rest Constantino BP: 100 mmHg Peak Constantino BP: 76 mmHg Angina Score: None Total METS: 7.1 Resting ECG Sinus rhythm, RBBB. Stress ECG No ST changes. Arrhythmias None. Report Signatures
== END 2025-01-11 10:33 | disposition home or self-care (01) ==
PROVIDERS: Visit Provider Internal Medicine Cardiovascular Disease
DX: R07.9 Chest pain, unspecified (principal)
CPT/HCPCS: 93017